=== PATIENT | male | born 1950 ===

== ENCOUNTER 2017-03-29 16:17 | Emergency (ER) | payer OTHER ==
--- NOTE | 2017-03-29 16:30 | UC ---
Abdominal Pain Male HPI - HPI Summary HPI Summary: 66 YEAR OLD MALE PRESENTS WITH COMPLAINS OF SEVERE BILATERAL LEG PAIN AND CONSTIPATION. - History of Current Complaint Stated Complaint: CONSTIPATION/BILATERAL KNEES/LEGS/ANKLES Time Seen by Provider: 03/29/17 16:26 Hx Obtained From: Patient Onset/Duration: Sudden Onset Severity Initially: Moderate Severity Currently: Moderate Pain Scale Used: 0-10 Numeric - 5 Character: Aching, Sharp Aggravating Factor(s):: Movement Alleviating Factor(s): Position Associated Signs And Symptoms: Positive: Constipation - Allergies/Home Medications Allergies/Adverse Reactions: Allergies Allergy/AdvReac Type Severity Reaction Status Date / Time No Known Allergies Allergy Verified 03/29/17 16:38 Home Medications: Home Medications NK [No Home Medications Reported] 03/29/17 [History Confirmed 03/29/17] PMH/Surg Hx/FS Hx/Imm Hx Previously Healthy: Yes Review of Systems Constitutional: Negative Skin: Negative Eyes: Negative ENT: Negative Respiratory: Negative Cardiovascular: Negative Gastrointestinal: Other - CONSTIPATION Genitourinary: Negative Motor: Negative Neurovascular: Negative Musculoskeletal: Myalgia - BILATERAL LEGS Neurological: Negative Psychological: Negative All Other Systems Reviewed And Are Negative: Yes Physical Exam Triage Information Reviewed: Yes Eye Exam: Normal ENT Exam: Normal Dental Exam: Normal Neck exam: Normal Neck: Positive: 1 Respiratory Exam: Normal Cardiovascular Exam: Normal Abdominal Exam: Normal Musculoskeletal Exam: Normal Neurological Exam: Normal Psychological Exam: Normal Skin Exam: Normal Abd Pain Male Course/Dx - Differential Dx/Clinical Impression Provider Diagnoses: CONSTIPATION. LEG SPASM Discharge - Discharge Plan Condition: Stable Disposition: HOME Patient Education Materials: Leg Edema (ED), Knee Pain (ED) Referrals: Glo Baldwin NP [Primary Care Provider] - Additional Instructions: PLEASE GO TO ER TO RULE OUT LEFT LOWER EXTREMITY DVT AND PATELLA FRACTURE.
[2017-03-29 16:45] VITALS: BP 123/76
== END 2017-03-29 16:55 | disposition home or self-care (01) ==
LOC: UCCORT 16:17
DX: K59.00 Constipation, unspecified (principal); M62.838 Other muscle spasm
CPT/HCPCS: 99201; G0463